=== PATIENT | female | born 1965 | race African-American/Black ===

== ENCOUNTER 2019-06-26 14:46 | Emergency (ER) | payer BC, MEDICAID ==
[~2019-06-26] VITALS: Ht 170.2 cm; Wt 90.0 kg
[2019-06-26 14:55] VITALS: BP 134/78
== END 2019-06-26 17:13 | disposition left against medical advice (07) ==
LOC: ER 14:46
DX: Z53.21 Procedure and treatment not carried out due to patient leaving prior to being seen by health care provider (principal); E11.9 Type 2 diabetes mellitus without complications; J45.909 Unspecified asthma, uncomplicated; I10 Essential (primary) hypertension; F17.200 Nicotine dependence, unspecified, uncomplicated; Z90.710 Acquired absence of both cervix and uterus